=== PATIENT | female | born 1945 | race Caucasian/White ===

== ENCOUNTER 2021-08-28 16:05 | Emergency (ER) | payer MEDICARE ==
[2021-08-28 17:51] VITALS: BP 155/80; TEMP 98.8
--- NOTE | 2021-08-28 20:32 | ED ---
General Adult HPI - General Chief complaint: Fever Stated complaint: Covid+,Wants antibody Time Seen by Provider: 08/28/21 19:43 Source: patient Mode of arrival: ambulatory Limitations: no limitations - History of Present Illness Initial comments: 76-year-old female presents to the emergency room for a chief complaint of COVID-19 symptoms. Patient states that Friday she started to develop symptoms. States she had body aches and a cough. Today she started to feel little nauseous and short of breath. She did not get COVID-19 vaccine. shortness of breath is much improved. She has no chest pain. Patient was told by a family member to get the antibodies. Patient has no other complaints at this time including shortness of breath, chest pain, abdominal pain, nausea or vomiting, headache, or visual changes. - Related Data Allergies Allergy/AdvReac Type Severity Reaction Status Date / Time hydromorphone [From Dilaudid] Allergy Hallucinati Verified 08/28/21 17:52 ons Review of Systems ROS Statement: Those systems with pertinent positive or pertinent negative responses have been documented in the HPI. ROS Other: All systems not noted in ROS Statement are negative. Past Medical History Past Medical History: No Reported History History of Any Multi-Drug Resistant Organisms: None Reported Past Surgical History: Hysterectomy Past Psychological History: No Psychological Hx Reported Smoking Status: Never smoker Past Alcohol Use History: Rare Past Drug Use History: None Reported General Exam Limitations: no limitations General appearance: alert, in no apparent distress Head exam: Present: atraumatic Course Vital Signs 08/28/21 17:45 Temperature 98.8 F Pulse Rate 91 Respiratory 18 Rate Blood Pressure 155/80 O2 Sat by Pulse 98 Oximetry Medical Decision Making - Medical Decision Making Vitals are stable. Patient is well-appearing. Patient did test positive for COVID-19. At this time patient is stable for outpatient management but does agree to antibody infusion. This was given and patient was monitored for an hour. Patient will be discharged to follow up with primary care. Will return here for any worsening symptoms. - Lab Data Lab Results 08/28/21 Range/Units 17:55 Coronavirus (PCR) Detected A (Not Detectd) Disposition Clinical Impression: COVID-19 Disposition: HOME SELF-CARE Condition: Good Instructions (If sedation given, give patient instructions): Coronavirus Disease 2019 (COVID-19) Additional Instructions: Continue to take vitamin C, D, and zinc. Take Motrin and Tylenol for body aches. Please follow-up with your doctor in one to 2 days. Return to the emergency room for any worsening symptoms. Is patient prescribed a controlled substance at d/c from ED?: No Referrals: Tomas Szymanski MD [Primary Care Provider] - 1-2 days Time of Disposition: 20:41
[2021-08-28] MEDS ORDERED: BAMLANIVIMAB (EUA) 700 MG, ETESEVIMAB (EUA) 1,400 MG in SODIUM CHLORIDE 0.9% 50 ML IVPB ONE (20:45)
[2021-08-28] MEDS ORDERED: SODIUM CHLORIDE 0.9% 50 ML IVPB ONE (20:45)
[2021-08-28] MEDS ORDERED: ONDANSETRON 4 MG/2 ML VIAL IVP STA (21:14)
[2021-08-28] MEDS ORDERED: SODIUM CHLORIDE 0.9% 1,000 ML IV STA (21:14)
[2021-08-28 22:44] VITALS: PULSE 72; RESP 16
== END 2021-08-28 22:49 | disposition home or self-care (01) ==
LOC: EC 16:05
DX: U07.1 COVID-19 (principal); Z88.5 Allergy status to narcotic agent
CPT/HCPCS: 87635; 99283; 96374; 96361; J3490